=== PATIENT | male | born 1965 | race Caucasian/White ===

== ENCOUNTER 2021-06-26 20:30 | Inpatient (IN) | payer MEDICARE, MEDICAID ==
[~2021-06-26] VITALS: Ht 180.3 cm; Wt 116.9 kg
[~2021-06-26 20:30] MED LIST: ACET325T14 PO; ALLO100T30 PO; ASCO500T8 PO; ERTA1VIA IV; FURO20TA3 PO; GABA300C10 PO; GLIP5TAB22 PO; IBUP-1223 PO; LISI30TA4 PO; METF10007 PO; METH2.5T PO; MULT-658 PO; NORT25CA78 PO; POTA8TAB6 PO
[2021-06-26 22:13] LABS: HCT (SEDRATE) 41.9 % (39.2-51.8)
[2021-06-26 22:16] LABS: ALANINE AMINOTRANSFERASE 75 U/L (12-78); ALBUMIN 2.9 g/dL (3.4-5.0); ANION GAP 14 mmol/L (5-15); CALCIUM 9.5 mg/dL (8.5-10.1); CHLORIDE 97 mmol/L (98-107)
[2021-06-26 22:26] LABS: ALKALINE PHOSPHATASE 103 U/L (45-117); BILIRUBIN,TOTAL 0.6 mg/dL (0.2-1.0)
[2021-06-26 22:30] LABS: C-REACTIVE PROTEIN, QUANT > 19.00 mg/dL (0.02-0.49)
[2021-06-26 23:04] LABS: BASOPHILS % (AUTO) 0 % (0-1); EOSINOPHILS % (AUTO) 1 % (1-7); LYMPHOCYTES % (AUTO) 12 % (22-44); MEAN CORPUSCULAR HEMOGLOBIN 31.1 pg (27.5-34.5); MEAN CORPUSCULAR HGB CONC 33.7 g/dL (33.2-36.2); MEAN PLATELET VOLUME 7.2 fL (7.4-10.4); MONOCYTES % (AUTO) 8 % (2-9); NEUTROPHILS % (AUTO) 80 % (42-75); PLATELET COUNT 656 x10^3/uL (130-400); RED CELL DISTRIBUTION WIDTH 13.9 % (9.4-14.8)
--- NOTE | 2021-06-26 23:12 | NUR ---
TO ROOM FROM LOBBY. NAD.
[2021-06-26] MEDS ORDERED: VANCOMYCIN PER PHARMACY MC ONE (23:30)
[2021-06-26] MEDS ORDERED: SODIUM CHLORIDE 0.9% 1,000 ML IV ONE (23:30)
[2021-06-26] MEDS ORDERED: ONDANSETRON 2MG/ML, 2ML IVPush PRN (23:30)
[2021-06-26] MEDS ORDERED: VANCOMYCIN 2,500 MG in SODIUM CHLORIDE 0.9% 500 ML IV ONE (23:30)
[2021-06-26] MEDS ORDERED: PIPERACILLIN/TAZO 3.375 GM in DEXTROSE 5% 50 ML IVPB ONE (23:30)
[2021-06-27] MEDS ORDERED: MELATONIN 5 MG TABLET PO PRN
[2021-06-27] MEDS ORDERED: POLYETHYLENE GLYCOL 17 GM PACKET PO PRN
[2021-06-27] MEDS ORDERED: LABETALOL 5MG/ML, 20ML IVPush PRN
[2021-06-27] MEDS ORDERED: ONDANSETRON 2MG/ML, 2ML IVPush PRN
--- NOTE | 2021-06-27 00:22 | NUR ---
TASK RN: NEVAEH STARTED, REPORT TO ANJALI SALAZAR
[2021-06-27 00:49] VITALS: BP 141/91
[2021-06-27] MEDS: PIPERACILLIN/TAZO 3.375 GM in DEXTROSE 5% 50 ML IV SCH ×4 (06:08→17:10)
[2021-06-27 06:21] LABS: BASOPHILS % (AUTO) 0 % (0-1); EOSINOPHILS % (AUTO) 2 % (1-7); LYMPHOCYTES % (AUTO) 16 % (22-44); MEAN CORPUSCULAR HEMOGLOBIN 31.1 pg (27.5-34.5); MEAN CORPUSCULAR HGB CONC 33.5 g/dL (33.2-36.2); MEAN PLATELET VOLUME 7.7 fL (7.4-10.4); MONOCYTES % (AUTO) 9 % (2-9); NEUTROPHILS % (AUTO) 74 % (42-75); PLATELET COUNT 462 x10^3/uL (130-400); RED BLOOD COUNT 4.26 x10^6/uL (4.38-5.82)
[2021-06-27 06:25] LABS: ANION GAP 12 mmol/L (5-15); CALCIUM 9.1 mg/dL (8.5-10.1); CHLORIDE 99 mmol/L (98-107); CREATININE 0.97 mg/dL (0.7-1.3)
[2021-06-27] MEDS: INSULIN LISPRO 100 UNITS/ML, PEN SQ-INSULIN SCH ×5 (07:00→20:41)
[2021-06-27 07:19] VITALS: BP 131/80
[2021-06-27] MEDS ORDERED: GADOTERATE 10 MMOL/20ML SYR ONE (09:12)
[2021-06-27 13:15] VITALS: BP 144/84
[2021-06-27] MEDS: ACETAMINOPHEN 325 MG TABLET PO PRN (17:04)
[2021-06-27 18:54] VITALS: BP 148/91
[2021-06-28] MEDS: PIPERACILLIN/TAZO 3.375 GM in DEXTROSE 5% 50 ML IV SCH ×5 (00:29→23:53)
[2021-06-28 02:01] VITALS: BP 146/87
[2021-06-28 06:43] LABS: BASOPHILS % (AUTO) 1 % (0-1); EOSINOPHILS % (AUTO) 2 % (1-7); LYMPHOCYTES % (AUTO) 15 % (22-44); MEAN CORPUSCULAR HEMOGLOBIN 31.1 pg (27.5-34.5); MEAN CORPUSCULAR HGB CONC 34.1 g/dL (33.2-36.2); MONOCYTES % (AUTO) 8 % (2-9); NEUTROPHILS % (AUTO) 75 % (42-75); PLATELET COUNT 526 x10^3/uL (130-400); RED BLOOD COUNT 3.89 x10^6/uL (4.38-5.82); RED CELL DISTRIBUTION WIDTH 13.9 % (9.4-14.8)
[2021-06-28 06:53] LABS: ANION GAP 8 mmol/L (5-15); CALCIUM 8.5 mg/dL (8.5-10.1); CHLORIDE 103 mmol/L (98-107)
[2021-06-28 06:55] VITALS: BP 151/96
[2021-06-28 06:55] LABS: CREATININE 0.71 mg/dL (0.7-1.3)
[2021-06-28] MEDS: INSULIN LISPRO 100 UNITS/ML, PEN SQ-INSULIN SCH ×4 (07:00→21:00)
[2021-06-28] MEDS: ACETAMINOPHEN 325 MG TABLET PO PRN ×3 (10:29→21:57)
[2021-06-28 13:00] VITALS: BP 158/84
[2021-06-28 18:51] VITALS: BP 159/89
[2021-06-28] MEDS: HYDROmorphone 2 MG/ML, 1ML IVPush PRN (20:36)
[2021-06-29 01:05] VITALS: BP 155/98
[2021-06-29] MEDS: HYDROmorphone 2 MG/ML, 1ML IVPush PRN ×2 (01:35→13:47)
[2021-06-29] MEDS: ACETAMINOPHEN 325 MG TABLET PO PRN ×2 (06:36→20:50)
[2021-06-29] MEDS: PIPERACILLIN/TAZO 3.375 GM in DEXTROSE 5% 50 ML IV SCH ×3 (06:36→20:50)
[2021-06-29] MEDS: INSULIN LISPRO 100 UNITS/ML, PEN SQ-INSULIN SCH ×4 (07:00→20:53)
[2021-06-29 07:26] LABS: ANION GAP 6 mmol/L (5-15); CALCIUM 8.4 mg/dL (8.5-10.1); CHLORIDE 102 mmol/L (98-107); CREATININE 0.65 mg/dL (0.7-1.3)
[2021-06-29 07:32] LABS: BASOPHILS % (AUTO) 1 % (0-1); EOSINOPHILS % (AUTO) 2 % (1-7); LYMPHOCYTES % (AUTO) 16 % (22-44); MEAN CORPUSCULAR HEMOGLOBIN 30.4 pg (27.5-34.5); MEAN CORPUSCULAR HGB CONC 33.1 g/dL (33.2-36.2); MEAN PLATELET VOLUME 6.9 fL (7.4-10.4); MONOCYTES % (AUTO) 8 % (2-9); NEUTROPHILS % (AUTO) 73 % (42-75); PLATELET COUNT 512 x10^3/uL (130-400); RED BLOOD COUNT 4.12 x10^6/uL (4.38-5.82); RED CELL DISTRIBUTION WIDTH 13.5 % (9.4-14.8)
[2021-06-29 08:57] VITALS: BP 156/96
[2021-06-29 12:32] VITALS: BP 164/100
[2021-06-29 20:05] VITALS: BP 158/105
[2021-06-29] MEDS: GABAPENTIN 300 MG CAPSULE PO SCH (20:50)
[2021-06-29 20:54] VITALS: BP 181/101
[2021-06-29] MEDS ORDERED: ALLOPURINOL 100 MG TABLET PO PRN (23:00)
[2021-06-29] MEDS: FUROSEMIDE 20 MG TABLET PO SCH (23:05)
[2021-06-29] MEDS: LISINOPRIL 10 MG TABLET PO SCH (23:05)
[2021-06-30] MEDS: PIPERACILLIN/TAZO 3.375 GM in DEXTROSE 5% 50 ML IV SCH ×4 (02:06→22:09)
[2021-06-30] MEDS: ACETAMINOPHEN 325 MG TABLET PO PRN ×3 (02:06→21:25)
[2021-06-30 02:34] VITALS: BP 170/90
[2021-06-30] MEDS: HYDROmorphone 2 MG/ML, 1ML IVPush PRN ×3 (05:10→21:26)
[2021-06-30 05:33] LABS: BASOPHILS % (AUTO) 1 % (0-1); EOSINOPHILS % (AUTO) 3 % (1-7); LYMPHOCYTES % (AUTO) 22 % (22-44); MEAN PLATELET VOLUME 6.9 fL (7.4-10.4); MONOCYTES % (AUTO) 8 % (2-9); NEUTROPHILS % (AUTO) 67 % (42-75); PLATELET COUNT 551 x10^3/uL (130-400); RED BLOOD COUNT 4.18 x10^6/uL (4.38-5.82); RED CELL DISTRIBUTION WIDTH 14.1 % (9.4-14.8)
[2021-06-30 05:41] LABS: ANION GAP 5 mmol/L (5-15); CALCIUM 8.9 mg/dL (8.5-10.1); CHLORIDE 104 mmol/L (98-107); CREATININE 0.75 mg/dL (0.7-1.3)
[2021-06-30] MEDS: INSULIN LISPRO 100 UNITS/ML, PEN SQ-INSULIN SCH ×4 (06:27→22:10)
[2021-06-30 07:26] VITALS: BP 126/83
[2021-06-30] MEDS: GABAPENTIN 300 MG CAPSULE PO SCH ×3 (07:58→21:11)
[2021-06-30] MEDS: FUROSEMIDE 20 MG TABLET PO SCH (07:58)
[2021-06-30] MEDS: POTASSIUM CHLORIDE 8 MEQ TABLET.ER PO SCH (07:58)
[2021-06-30] MEDS: LISINOPRIL 10 MG TABLET PO SCH (07:59)
[2021-06-30] MEDS: NORTRIPTYLINE 25 MG CAPSULE PO SCH (07:59)
[2021-06-30 13:25] VITALS: BP 125/83
[2021-06-30 20:05] VITALS: BP 148/98
[2021-07-01 00:21] VITALS: BP 145/88
[2021-07-01] MEDS: HYDROmorphone 2 MG/ML, 1ML IVPush PRN ×4 (02:46→21:01)
[2021-07-01] MEDS: PIPERACILLIN/TAZO 3.375 GM in DEXTROSE 5% 50 ML IV SCH ×4 (03:43→22:55)
[2021-07-01] MEDS: INSULIN LISPRO 100 UNITS/ML, PEN SQ-INSULIN SCH ×4 (06:35→21:00)
[2021-07-01] MEDS ORDERED: CHLORHEXIDINE 15 ML UDC ONE (06:51)
[2021-07-01] MEDS ORDERED: FENTANYL PF 250 MCG/5ML ONE (06:53)
[2021-07-01] MEDS ORDERED: PROPOFOL 50 ML ONE (06:55)
[2021-07-01] MEDS ORDERED: ONDANSETRON 2MG/ML, 2ML IVPush PRN (07:30)
[2021-07-01] MEDS ORDERED: MEPERIDINE/PF 25MG/0.5ML IVPush PRN (07:30)
[2021-07-01] MEDS ORDERED: OXYcodone 5 MG/5 ML ORAL.SOL UDC PO PRN (07:30)
[2021-07-01] MEDS ORDERED: METHOCARBAMOL 1,000 MG in DEXTROSE 5% 100 ML IV PRN (07:30)
[2021-07-01] MEDS ORDERED: LORazepam 2 MG/ML, 1ML IVPush PRN (07:30)
[2021-07-01] MEDS ORDERED: EPHEDRINE 50 MG/ML, 1ML IVPush PRN (07:30)
[2021-07-01] MEDS ORDERED: ACETAMINOPHEN 325 MG TABLET PO PRN (07:30)
[2021-07-01] MEDS ORDERED: FENTANYL PF 100 MCG/2ML IV PRN (07:30)
[2021-07-01] MEDS ORDERED: PROMETHAZINE 25 MG/ML, 1ML IVPush PRN (07:30)
[2021-07-01] MEDS ORDERED: LABETALOL 5MG/ML, 20ML IV PRN (07:30)
[2021-07-01] MEDS ORDERED: HYDROmorphone 1 MG/ML, 1ML INJ IVPush PRN (07:30)
[2021-07-01] MEDS ORDERED: hydrALAzine 20 MG/ML, 1ML IV PRN (07:30)
[2021-07-01] MEDS ORDERED: OXYcodone 5 MG/5 ML ORAL.SOL UDC ONE (07:38)
[2021-07-01] MEDS: POTASSIUM CHLORIDE 8 MEQ TABLET.ER PO SCH (08:33)
[2021-07-01] MEDS: FUROSEMIDE 20 MG TABLET PO SCH (08:33)
[2021-07-01] MEDS: GABAPENTIN 300 MG CAPSULE PO SCH ×3 (08:33→21:00)
[2021-07-01] MEDS: LISINOPRIL 10 MG TABLET PO SCH (08:34)
[2021-07-01] MEDS: NORTRIPTYLINE 25 MG CAPSULE PO SCH (08:34)
[2021-07-01 13:00] VITALS: BP 135/87
[2021-07-01 20:38] VITALS: BP 152/96
[2021-07-01] MEDS: ACETAMINOPHEN 325 MG TABLET PO PRN (21:00)
[2021-07-02 01:11] VITALS: BP 128/69
[2021-07-02] MEDS: PIPERACILLIN/TAZO 3.375 GM in DEXTROSE 5% 50 ML IV SCH ×2 (04:48→11:15)
[2021-07-02 05:14] LABS: BASOPHILS % (AUTO) 1 % (0-1); EOSINOPHILS % (AUTO) 4 % (1-7); LYMPHOCYTES % (AUTO) 34 % (22-44); MEAN CORPUSCULAR HGB CONC 32.5 g/dL (33.2-36.2); MEAN PLATELET VOLUME 6.7 fL (7.4-10.4); MONOCYTES % (AUTO) 8 % (2-9); NEUTROPHILS % (AUTO) 54 % (42-75); PLATELET COUNT 518 x10^3/uL (130-400); RED BLOOD COUNT 4.27 x10^6/uL (4.38-5.82); RED CELL DISTRIBUTION WIDTH 13.8 % (9.4-14.8)
[2021-07-02 05:24] LABS: CALCIUM 8.8 mg/dL (8.5-10.1); CHLORIDE 106 mmol/L (98-107)
[2021-07-02 05:25] LABS: CREATININE 0.77 mg/dL (0.7-1.3)
[2021-07-02 05:29] LABS: ANION GAP 2 mmol/L (5-15)
[2021-07-02] MEDS: HYDROmorphone 2 MG/ML, 1ML IVPush PRN ×2 (06:12→13:05)
[2021-07-02] MEDS: INSULIN LISPRO 100 UNITS/ML, PEN SQ-INSULIN SCH ×4 (06:38→20:13)
[2021-07-02 07:10] VITALS: BP 140/93
[2021-07-02] MEDS: FUROSEMIDE 20 MG TABLET PO SCH (08:45)
[2021-07-02] MEDS: GABAPENTIN 300 MG CAPSULE PO SCH ×3 (08:45→20:09)
[2021-07-02] MEDS: LISINOPRIL 10 MG TABLET PO SCH (08:45)
[2021-07-02] MEDS: NORTRIPTYLINE 25 MG CAPSULE PO SCH (08:45)
[2021-07-02] MEDS: POTASSIUM CHLORIDE 8 MEQ TABLET.ER PO SCH (08:45)
[2021-07-02 12:19] VITALS: BP 148/95
[2021-07-02] MEDS: OXYcodone/APAP 5/325MG TABLET PO PRN (20:09)
[2021-07-02 21:28] VITALS: BP 153/82
[2021-07-03] MEDS: OXYcodone/APAP 5/325MG TABLET PO PRN ×5 (00:14→20:11)
[2021-07-03 02:48] VITALS: BP 146/95
[2021-07-03 06:14] LABS: ANION GAP 8 mmol/L (5-15); CALCIUM 8.6 mg/dL (8.5-10.1); CHLORIDE 103 mmol/L (98-107)
[2021-07-03] MEDS: INSULIN LISPRO 100 UNITS/ML, PEN SQ-INSULIN SCH ×4 (06:34→20:14)
[2021-07-03 06:37] LABS: BASOPHILS % (AUTO) 1 % (0-1); EOSINOPHILS % (AUTO) 5 % (1-7); LYMPHOCYTES % (AUTO) 41 % (22-44); MEAN CORPUSCULAR HGB CONC 33.6 g/dL (33.2-36.2); MEAN PLATELET VOLUME 6.9 fL (7.4-10.4); MONOCYTES % (AUTO) 9 % (2-9); NEUTROPHILS % (AUTO) 44 % (42-75); PLATELET COUNT 600 x10^3/uL (130-400); RED CELL DISTRIBUTION WIDTH 14.1 % (9.4-14.8)
[2021-07-03 09:20] VITALS: BP 153/100
[2021-07-03] MEDS: LISINOPRIL 10 MG TABLET PO SCH (09:29)
[2021-07-03] MEDS: NORTRIPTYLINE 25 MG CAPSULE PO SCH (09:29)
[2021-07-03] MEDS: GABAPENTIN 300 MG CAPSULE PO SCH ×3 (09:29→22:18)
[2021-07-03] MEDS: FUROSEMIDE 20 MG TABLET PO SCH (09:29)
[2021-07-03] MEDS: POTASSIUM CHLORIDE 8 MEQ TABLET.ER PO SCH (09:29)
[2021-07-03] MEDS: HYDROmorphone 2 MG/ML, 1ML IVPush PRN (10:29)
[2021-07-03] MEDS ORDERED: CEFAZOLIN 2,000 MG in SODIUM CHLORIDE 0.9% 50 ML IV SCH (11:00)
[2021-07-03] MEDS: CEFAZOLIN PMX 2GM/50ML 50 ML IVPB SCH ×2 (13:06→22:18)
[2021-07-03 13:30] VITALS: BP 151/92
[2021-07-03 19:52] VITALS: BP 151/84
[2021-07-04] MEDS: OXYcodone/APAP 5/325MG TABLET PO PRN ×3 (02:48→21:17)
[2021-07-04 04:45] VITALS: BP 152/89
[2021-07-04 05:36] LABS: BASOPHILS % (AUTO) 1 % (0-1); EOSINOPHILS % (AUTO) 5 % (1-7); LYMPHOCYTES % (AUTO) 34 % (22-44); MEAN CORPUSCULAR HEMOGLOBIN 31.1 pg (27.5-34.5); MONOCYTES % (AUTO) 6 % (2-9); NEUTROPHILS % (AUTO) 55 % (42-75); PLATELET COUNT 489 x10^3/uL (130-400); RED BLOOD COUNT 4.15 x10^6/uL (4.38-5.82); RED CELL DISTRIBUTION WIDTH 13.9 % (9.4-14.8)
[2021-07-04 05:41] LABS: ANION GAP 7 mmol/L (5-15); CALCIUM 8.8 mg/dL (8.5-10.1); CHLORIDE 99 mmol/L (98-107); CREATININE 0.74 mg/dL (0.7-1.3)
[2021-07-04] MEDS: CEFAZOLIN PMX 2GM/50ML 50 ML IVPB SCH ×3 (05:52→21:06)
[2021-07-04] MEDS: INSULIN LISPRO 100 UNITS/ML, PEN SQ-INSULIN SCH ×4 (07:00→21:19)
[2021-07-04] MEDS: GABAPENTIN 300 MG CAPSULE PO SCH ×3 (07:58→21:04)
[2021-07-04] MEDS: LISINOPRIL 10 MG TABLET PO SCH (07:58)
[2021-07-04] MEDS: FUROSEMIDE 20 MG TABLET PO SCH (07:58)
[2021-07-04] MEDS: POTASSIUM CHLORIDE 8 MEQ TABLET.ER PO SCH (07:58)
[2021-07-04 08:00] VITALS: BP 156/101
[2021-07-04] MEDS: NORTRIPTYLINE 25 MG CAPSULE PO SCH (08:00)
[2021-07-04] MEDS ORDERED: ACETAMINOPHEN 325 MG TABLET PO PRN (10:00)
[2021-07-04] MEDS: HEPARIN 5,000 UNITS/ML, 1ML SQ SCH ×2 (11:10→18:05)
[2021-07-04 13:41] VITALS: BP 145/96
[2021-07-04 18:01] VITALS: BP 153/101
[2021-07-04] MEDS: CARVEDILOL 3.125 MG TABLET PO SCH (18:04)
[2021-07-05] MEDS: HEPARIN 5,000 UNITS/ML, 1ML SQ SCH ×2 (02:11→10:48)
[2021-07-05] MEDS: OXYcodone/APAP 5/325MG TABLET PO PRN ×2 (02:12→06:19)
[2021-07-05 02:49] VITALS: BP 147/94
[2021-07-05 05:28] VITALS: BP 152/94
[2021-07-05] MEDS: CARVEDILOL 3.125 MG TABLET PO SCH (05:30)
[2021-07-05] MEDS: CEFAZOLIN PMX 2GM/50ML 50 ML IVPB SCH ×2 (05:30→13:36)
[2021-07-05 06:19] LABS: BASOPHILS % (AUTO) 1 % (0-1); EOSINOPHILS % (AUTO) 5 % (1-7); LYMPHOCYTES % (AUTO) 38 % (22-44); MEAN CORPUSCULAR HEMOGLOBIN 30.8 pg (27.5-34.5); MEAN CORPUSCULAR HGB CONC 32.8 g/dL (33.2-36.2); MEAN PLATELET VOLUME 6.9 fL (7.4-10.4); MONOCYTES % (AUTO) 9 % (2-9); NEUTROPHILS % (AUTO) 48 % (42-75); PLATELET COUNT 423 x10^3/uL (130-400); RED BLOOD COUNT 4.34 x10^6/uL (4.38-5.82); RED CELL DISTRIBUTION WIDTH 14.1 % (9.4-14.8)
[2021-07-05] MEDS: INSULIN LISPRO 100 UNITS/ML, PEN SQ-INSULIN SCH ×2 (07:00→11:00)
[2021-07-05 07:04] VITALS: BP 123/90
[2021-07-05 07:11] LABS: HCT (SEDRATE) 39.8 % (39.2-51.8)
[2021-07-05 07:15] LABS: ALANINE AMINOTRANSFERASE 47 U/L (12-78); ALBUMIN 3.4 g/dL (3.4-5.0); CALCIUM 9.6 mg/dL (8.5-10.1); CREATININE 0.83 mg/dL (0.7-1.3)
[2021-07-05 07:21] LABS: ALKALINE PHOSPHATASE 83 U/L (45-117); BILIRUBIN,TOTAL 0.3 mg/dL (0.2-1.0); TOTAL PROTEIN 9.2 g/dL (6.4-8.2)
[2021-07-05 07:34] LABS: ANION GAP 7 mmol/L (5-15); CHLORIDE 98 mmol/L (98-107)
[2021-07-05] MEDS: GABAPENTIN 300 MG CAPSULE PO SCH (08:23)
[2021-07-05] MEDS: NORTRIPTYLINE 25 MG CAPSULE PO SCH (08:23)
[2021-07-05] MEDS: POTASSIUM CHLORIDE 8 MEQ TABLET.ER PO SCH (08:23)
[2021-07-05] MEDS: LISINOPRIL 10 MG TABLET PO SCH (08:25)
[2021-07-05] MEDS ORDERED: HYDR-3341 PO (13:07)
[2021-07-05] MEDS ORDERED: METH2.5T PO (13:07)
[2021-07-05] MEDS ORDERED: CARV3.1212 PO (13:07)
[2021-07-05] MEDS ORDERED: INSU100I11 SQ-INSULIN (13:07)
[2021-07-05 14:08] VITALS: BP 158/93
== END 2021-07-05 14:37 | disposition home or self-care (01) | DRG 854 ==
LOC: ED 06-27 00:01 → EDIP 06-27 00:34 → 4NE 06-27 00:35
PROVIDERS: ADMIT Internal Medicine; ATTEND Internal Medicine
PROC: 0KBW0ZZ Excision of Left Foot Muscle, Open Approach (ICD-10-PCS; 2021-07-01)
PROC: 02HV33Z Insertion of Infusion Device into Superior Vena Cava, Percutaneous Approach (ICD-10-PCS; principal; 2021-07-03)
PROC: B5181ZA Fluoroscopy of Superior Vena Cava using Low Osmolar Contrast, Guidance (ICD-10-PCS; 2021-07-03)
PROC: B548ZZA Ultrasonography of Superior Vena Cava, Guidance (ICD-10-PCS; 2021-07-03)
DX: A41.01 Sepsis due to Methicillin susceptible Staphylococcus aureus (principal); L02.612 Cutaneous abscess of left foot; L03.116 Cellulitis of left lower limb; E87.1 Hypo-osmolality and hyponatremia; E10.621 Type 1 diabetes mellitus with foot ulcer; E10.42 Type 1 diabetes mellitus with diabetic polyneuropathy; E10.65 Type 1 diabetes mellitus with hyperglycemia; E66.01 Morbid (severe) obesity due to excess calories; Z68.35 Body mass index [BMI] 35.0-35.9, adult; Z88.5 Allergy status to narcotic agent; Z20.822 Contact with and (suspected) exposure to COVID-19; E87.6 Hypokalemia; F10.10 Alcohol abuse, uncomplicated; G60.8 Other hereditary and idiopathic neuropathies; I10 Essential (primary) hypertension; J45.909 Unspecified asthma, uncomplicated; K21.9 Gastro-esophageal reflux disease without esophagitis; L40.9 Psoriasis, unspecified; L97.529 Non-pressure chronic ulcer of other part of left foot with unspecified severity; M14.672 Charcot's joint, left ankle and foot; M14.671 Charcot's joint, right ankle and foot; Z82.5 Family history of asthma and other chronic lower respiratory diseases; M19.90 Unspecified osteoarthritis, unspecified site; Z79.899 Other long term (current) drug therapy
CPT/HCPCS: 36415; 36573; 80048; 80053; 82962; 83036; 83605; 85025; 85651; 86140; 87040; 87070; 87077; 87147; 87186; 87205; 87635; 93005; 96361; 96374; G0378; J0690; J1170; J1644; J2543; J2704; J3010; J3370; A9575; C1751; J1815; J7030; J7040